=== PATIENT | female | born 1985 | race American Indian/Alaskan Native ===

== ENCOUNTER 2017-08-13 05:57 | Emergency (ER) | payer MEDICAID, OTHER ==
[2017-08-13 06:12] VITALS: BP 114/87
[2017-08-13] MEDS: MOTRIN PO ONE (08:10)
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
== END 2017-08-13 09:10 | disposition home or self-care (01) ==
LOC: ED 05:57
DX: S39.012A Strain of muscle, fascia and tendon of lower back, initial encounter (principal); M25.562 Pain in left knee; F41.0 Panic disorder [episodic paroxysmal anxiety]; V49.49XA Driver injured in collision with other motor vehicles in traffic accident, initial encounter; W22.11XA Striking against or struck by driver side automobile airbag, initial encounter; Y93.89 Activity, other specified; Y92.89 Other specified places as the place of occurrence of the external cause; Y99.8 Other external cause status
CPT/HCPCS: 72100; 99283